=== PATIENT | male | born 1965 | race Caucasian/White ===

== ENCOUNTER 2019-09-11 03:43 | Inpatient (IN) ==
[2019-09-11] MEDS ORDERED: ONDANSETRON 4 MG/2 ML VIAL IV STA (04:08)
[2019-09-11] MEDS ORDERED: MORPHINE 4 MG/1 ML VIAL IV STA ×3 (04:08→05:42)
[2019-09-11] MEDS ORDERED: ASPIRIN 325 MG TABLET PO STA (04:08)
[2019-09-11] MEDS ORDERED: NITROGLYCERIN 2% OINT 1 INCH/GM PACK TOP STA (04:08)
[2019-09-11] MEDS ORDERED: ASPIRIN 325 MG TABLET ONE (04:09)
[2019-09-11] MEDS ORDERED: NITROGLYCERIN 2% OINT 1 INCH/GM PACK TOP ONE (04:09)
[2019-09-11] MEDS ORDERED: MORPHINE 4 MG/1 ML VIAL ONE (04:09)
[2019-09-11] MEDS ORDERED: ONDANSETRON 4 MG/2 ML VIAL ONE (04:09)
[2019-09-11 04:15] LABS: Basophils # 0.1 10*3/uL (0.0-0.2); Basophils % 0.7 % (0.0-0.8); Eosinophils # 0.1 10*3/uL (0.0-0.87); Hematocrit 44.5 VOL% (42.0-52.0); Hemoglobin 14.8 GM/DL (14.0-18.0); Immature Granulocytes % 0.3 %; Immature Granulocytes Absolute 0.02 #; Lymphocytes # 2.8 10*3/uL (1.4-4.0); Lymphocytes % 38.9 % (21.2-54.2); Mean Corpuscular HGB Conc 33.3 GM/DL (32-36); Mean Corpuscular Volume 90.4 FL (87-102); Mean Platelet Volume 9.3 FL (9.6-12.0); Monocytes % 11.3 % (1.7-12.7); Neutrophils % 46.8 % (38.7-73.9); Platelet Count 192 T/CUMM (130-400); Red Blood Count 4.92 MC/CUMM (3.8-5.5); Red Cell Distribution Width 12.2 % (9.3-17.3); White Blood Count 7.1 T/CUMM (4-12)
[2019-09-11 04:56] LABS: Alanine Aminotransferase 29 U/L (16-61); Albumin 3.8 G/DL (3.4-5.0); Alkaline Phosphatase 73 U/L (45-117); Aspartate Amino Transferase 19 U/L (0-37); Bilirubin,Total < 0.39 MG/DL (0.2-1.0); Blood Urea Nitrogen 32 MG/DL (7-18); Calcium 8.4 MG/DL (8.5-10.1); Estimated Glom Filtration Rate 71 ML/MIN; Glucose 124 MG/DL (74-106); Osmolality,Calculated 290.1 MOS/KG (273-304); Total Protein 6.6 G/DL (6.4-8.3)
[2019-09-11] MEDS ORDERED: ENOXAPARIN 100 MG/ML SYRINGE SUBCUT STA (04:58)
[2019-09-11] MEDS ORDERED: PROMETHAZINE 25 MG/1 ML VIAL ONE (05:40)
[2019-09-11] MEDS ORDERED: PROMETHAZINE INJ 25 MG in SODIUM CHLORIDE 0.9% 50 ML IV STA (05:42)
[2019-09-11] MEDS ORDERED: ROSUVASTATIN 20 MG TABLET PO SCH (09:00)
[2019-09-11] MEDS ORDERED: SODIUM CHLORIDE 0.9% 500 ML IV ONE (09:00)
[2019-09-11] MEDS ORDERED: DIAZEPAM 5 MG TABLET PO ONE (09:21)
[2019-09-11] MEDS ORDERED: diphenhydrAMINE CAP 25 MG CAPSULE PO ONE (09:21)
[2019-09-11] MEDS ORDERED: LIDOCAINE 1% 20 ML VIAL ONE (09:27)
[2019-09-11] MEDS ORDERED: MIDAZOLAM 2 MG/2 ML VIAL ONE ×2 (09:47→10:54)
[2019-09-11] MEDS ORDERED: fentaNYL 100 MCG/2 ML VIAL ONE (09:48)
[2019-09-11] MEDS ORDERED: TIROFIBAN 5,000 MCG/100 ML PREMIX IV ONE (10:45)
[2019-09-11] MEDS: TIROFIBAN 5,000 MCG/100 ML PREMIX IV SCH ×3 (10:51→21:20)
[2019-09-11] MEDS ORDERED: TIROFIBAN IV ONE (11:12)
[2019-09-11] MEDS ORDERED: NITROGLYCERIN SL 0.4 MG TABLET SL PRN ×2 (11:25→14:14)
[2019-09-11] MEDS ORDERED: ONDANSETRON 4 MG/2 ML VIAL IV PRN ×2 (11:25→14:14)
[2019-09-11] MEDS ORDERED: MORPHINE 4 MG/1 ML VIAL IV PRN ×2 (11:25→14:14)
[2019-09-11] MEDS ORDERED: SODIUM CHLORIDE 0.9% 1,000 ML IV SCH (11:30)
[2019-09-11 12:28] LABS: CKMB % 10.4 %
[2019-09-11 12:36] LABS: Troponin I 10.1 NG/ML (0.00-0.045)
[2019-09-11 13:03] LABS: Apearance,Urine CLEAR (Clear); Bilirubin,Urine Negative (Negative); Blood, Urine Negative (Negative); Glucose,Urine (UA) Negative (Negative); Ketones,Urine Negative (Negative); Nitrite,Urine Negative (Negative); Protein,Urine Negative; RBC,Urine 1 /HPF (0-4); Squamous Epithelial Cell,Urine Occasional /HPF (0-10); Urine Color Straw (Yellow); Urine Specific Gravity > 1.060 (1.001-1.035); Urine Urobilinogen < 2.0 EU/DL (0.2-1.0)
[2019-09-11 13:12] LABS: Barbiturates Screen,Urine Negative (Negative); Benzodiazepines Screen,Urine Positive (Negative); Cannabinoid Screen,Urine Negative (Negative); Opiate Screen,Urine Positive (Negative); Phencyclidine Screen,Urine Negative (Negative)
[2019-09-11] MEDS ORDERED: PNEUMOCOCCAL VACCINE (13 VALENT) 0.5 ML SYRINGE IM ONE (13:58)
[2019-09-11] MEDS ORDERED: INFLUENZA VIRUS VACCINE 0.5 ML SYRINGE IM ONE (13:58)
[2019-09-11] MEDS ORDERED: ACETAMINOPHEN 325 MG TABLET PO PRN (14:14)
[2019-09-11] MEDS ORDERED: PROMETHAZINE INJ 25 MG in SODIUM CHLORIDE 0.9% 50 ML IV PRN (14:14)
[2019-09-11] MEDS ORDERED: NALOXONE 0.4 MG/ML VIAL IV STA (14:14)
[2019-09-11] MEDS: NON-FORMULARY MEDICATION (Modafinil [Provigil] 200 MG) PO SCH (14:17)
[2019-09-11] MEDS: SODIUM CHLORIDE 0.9% 1,000 ML IV SCH ×2 (14:37→23:11)
[2019-09-11 15:22] LABS: Risk Ratio 3.8; Thyroid Stimulating Hormone 5.44 uIU/ml (0.358-3.74); VLDL CHOLESTEROL 29.6 MG/DL
[2019-09-11] MEDS: PANTOPRAZOLE 40 MG TABLET PO SCH (15:55)
[2019-09-11] MEDS: ENOXAPARIN 80 MG/0.8 ML SYRINGE SUBCUT SCH (17:07)
[2019-09-11 20:39] LABS: CKMB % 9.9 %
[2019-09-11 20:42] LABS: Troponin I 44.8 NG/ML (0.00-0.045)
[2019-09-11] MEDS: ROSUVASTATIN 20 MG TABLET PO SCH (21:35)
[2019-09-11] MEDS: carvediloL 6.25 MG TABLET PO SCH (21:35)
[2019-09-12] MEDS: TIROFIBAN 5,000 MCG/100 ML PREMIX IV SCH ×6 (04:27→23:07)
[2019-09-12 05:02] LABS: Basophils % 0.4 % (0.0-0.8); Eosinophils # 0.1 10*3/uL (0.0-0.87); Eosinophils % 0.8 % (0.00-10.9); Hematocrit 43.1 VOL% (42.0-52.0); Hemoglobin 13.9 GM/DL (14.0-18.0); Immature Granulocytes % 0.4 %; Immature Granulocytes Absolute 0.03 #; Lymphocytes # 1.2 10*3/uL (1.4-4.0); Lymphocytes % 14.9 % (21.2-54.2); Mean Corpuscular HGB Conc 32.3 GM/DL (32-36); Mean Corpuscular Volume 93.7 FL (87-102); Mean Platelet Volume 9.6 FL (9.6-12.0); Monocytes % 8.1 % (1.7-12.7); Neutrophils % 75.4 % (38.7-73.9); Platelet Count 165 T/CUMM (130-400); Red Cell Distribution Width 12.4 % (9.3-17.3); White Blood Count 7.9 T/CUMM (4-12)
[2019-09-12 05:17] LABS: Osmolality,Calculated 287.8 MOS/KG (273-304)
[2019-09-12 05:28] LABS: Risk Ratio 3.82
[2019-09-12 05:40] LABS: CKMB % 7.1 %
[2019-09-12 05:52] LABS: Troponin I 34.3 NG/ML (0.00-0.045)
[2019-09-12] MEDS: ENOXAPARIN 80 MG/0.8 ML SYRINGE SUBCUT SCH (06:42)
[2019-09-12] MEDS: SODIUM CHLORIDE 0.9% 1,000 ML IV SCH (07:28)
[2019-09-12] MEDS: ASPIRIN EC 81 MG TABLET PO SCH (08:51)
[2019-09-12] MEDS: PANTOPRAZOLE 40 MG TABLET PO SCH (08:51)
[2019-09-12] MEDS: carvediloL 6.25 MG TABLET PO SCH ×2 (08:52→22:26)
[2019-09-12] MEDS: NON-FORMULARY MEDICATION (Modafinil [Provigil] 200 MG) PO SCH (08:52)
[2019-09-12] MEDS ORDERED: ASPIRIN 325 MG TABLET PO SCH (09:00)
[2019-09-12] MEDS: ROSUVASTATIN 20 MG TABLET PO SCH (22:26)
[2019-09-12] MEDS: ASCORBIC ACID 500 MG TABLET PO SCH (22:26)
[2019-09-13] MEDS: TIROFIBAN 5,000 MCG/100 ML PREMIX IV SCH ×4 (02:22→17:47)
[2019-09-13 05:13] LABS: Basophils % 0.3 % (0.0-0.8); Eosinophils # 0.2 10*3/uL (0.0-0.87); Eosinophils % 2.7 % (0.00-10.9); Hematocrit 42.3 VOL% (42.0-52.0); Hemoglobin 14.2 GM/DL (14.0-18.0); Immature Granulocytes % 0.3 %; Immature Granulocytes Absolute 0.02 #; Lymphocytes # 1.4 10*3/uL (1.4-4.0); Lymphocytes % 22.3 % (21.2-54.2); Mean Corpuscular HGB Conc 33.6 GM/DL (32-36); Mean Corpuscular Volume 90.6 FL (87-102); Monocytes % 10.1 % (1.7-12.7); Neutrophils % 64.3 % (38.7-73.9); Platelet Count 169 T/CUMM (130-400); Red Blood Count 4.67 MC/CUMM (3.8-5.5); Red Cell Distribution Width 12.2 % (9.3-17.3); White Blood Count 6.2 T/CUMM (4-12)
[2019-09-13 05:41] LABS: Calcium 8.1 MG/DL (8.5-10.1); Osmolality,Calculated 282.3 MOS/KG (273-304)
[2019-09-13 05:46] LABS: CKMB % 3.2 %; Troponin I 15.9 NG/ML (0.00-0.045)
[2019-09-13] MEDS: ASCORBIC ACID 500 MG TABLET PO SCH ×2 (09:56→20:56)
[2019-09-13] MEDS: carvediloL 6.25 MG TABLET PO SCH ×2 (09:56→20:57)
[2019-09-13] MEDS: PANTOPRAZOLE 40 MG TABLET PO SCH (09:56)
[2019-09-13] MEDS: ASPIRIN EC 81 MG TABLET PO SCH (09:56)
[2019-09-13] MEDS: NON-FORMULARY MEDICATION (Modafinil [Provigil] 200 MG) PO SCH (09:56)
[2019-09-13] MEDS: ROSUVASTATIN 20 MG TABLET PO SCH (20:57)
[2019-09-14] MEDS: TIROFIBAN 5,000 MCG/100 ML PREMIX IV SCH ×5 (00:21→21:04)
[2019-09-14] MEDS: ZALEPLON 5 MG CAPSULE PO PRN ×2 (00:27→23:34)
[2019-09-14 05:09] LABS: Basophils % 0.6 % (0.0-0.8); Eosinophils # 0.2 10*3/uL (0.0-0.87); Eosinophils % 2.8 % (0.00-10.9); Hematocrit 43.1 VOL% (42.0-52.0); Hemoglobin 14.4 GM/DL (14.0-18.0); Immature Granulocytes % 0.2 %; Immature Granulocytes Absolute 0.01 #; Lymphocytes # 1.5 10*3/uL (1.4-4.0); Lymphocytes % 27.8 % (21.2-54.2); Mean Corpuscular HGB Conc 33.4 GM/DL (32-36); Mean Corpuscular Volume 90.4 FL (87-102); Mean Platelet Volume 9.8 FL (9.6-12.0); Monocytes % 10.2 % (1.7-12.7); Neutrophils % 58.4 % (38.7-73.9); Platelet Count 171 T/CUMM (130-400); Red Blood Count 4.77 MC/CUMM (3.8-5.5); Red Cell Distribution Width 12.1 % (9.3-17.3); White Blood Count 5.3 T/CUMM (4-12)
[2019-09-14 05:42] LABS: Blood Urea Nitrogen 19 MG/DL (7-18); Calcium 8.4 MG/DL (8.5-10.1); Estimated Glom Filtration Rate 87 ML/MIN; Glucose 105 MG/DL (74-106); Osmolality,Calculated 280.4 MOS/KG (273-304)
[2019-09-14] MEDS: ASCORBIC ACID 500 MG TABLET PO SCH ×2 (09:11→21:03)
[2019-09-14] MEDS: PANTOPRAZOLE 40 MG TABLET PO SCH (09:11)
[2019-09-14] MEDS: ASPIRIN EC 81 MG TABLET PO SCH (09:11)
[2019-09-14] MEDS: carvediloL 6.25 MG TABLET PO SCH ×2 (09:12→21:03)
[2019-09-14] MEDS: NON-FORMULARY MEDICATION (Modafinil [Provigil] 200 MG) PO SCH (09:12)
[2019-09-14] MEDS: ROSUVASTATIN 20 MG TABLET PO SCH (21:03)
[2019-09-15] MEDS: TIROFIBAN 5,000 MCG/100 ML PREMIX IV SCH ×4 (03:42→17:54)
[2019-09-15 04:55] LABS: Basophils % 0.6 % (0.0-0.8); Eosinophils # 0.1 10*3/uL (0.0-0.87); Eosinophils % 2.7 % (0.00-10.9); Hematocrit 42.7 VOL% (42.0-52.0); Hemoglobin 14.2 GM/DL (14.0-18.0); Immature Granulocytes % 0.4 %; Immature Granulocytes Absolute 0.02 #; Lymphocytes # 1.5 10*3/uL (1.4-4.0); Lymphocytes % 28.8 % (21.2-54.2); Mean Corpuscular HGB Conc 33.3 GM/DL (32-36); Mean Corpuscular Volume 90.1 FL (87-102); Mean Platelet Volume 9.6 FL (9.6-12.0); Neutrophils % 56.5 % (38.7-73.9); Platelet Count 175 T/CUMM (130-400); Red Blood Count 4.74 MC/CUMM (3.8-5.5); White Blood Count 5.1 T/CUMM (4-12)
[2019-09-15 05:21] LABS: Calcium 8.9 MG/DL (8.5-10.1); Osmolality,Calculated 289.8 MOS/KG (273-304)
[2019-09-15] MEDS: NON-FORMULARY MEDICATION (Modafinil [Provigil] 200 MG) PO SCH (08:53)
[2019-09-15] MEDS: carvediloL 6.25 MG TABLET PO SCH ×2 (08:54→20:42)
[2019-09-15] MEDS: ASPIRIN EC 81 MG TABLET PO SCH (08:54)
[2019-09-15] MEDS: ASCORBIC ACID 500 MG TABLET PO SCH ×2 (08:54→20:42)
[2019-09-15] MEDS: PANTOPRAZOLE 40 MG TABLET PO SCH (08:55)
[2019-09-15] MEDS: ROSUVASTATIN 20 MG TABLET PO SCH (20:42)
[2019-09-15] MEDS: ZALEPLON 5 MG CAPSULE PO PRN ×2 (20:42→22:00)
[2019-09-16] MEDS: TIROFIBAN 5,000 MCG/100 ML PREMIX IV SCH ×3 (00:54→16:30)
[2019-09-16 04:58] LABS: Basophils % 0.3 % (0.0-0.8); Eosinophils # 0.2 10*3/uL (0.0-0.87); Eosinophils % 3.4 % (0.00-10.9); Hematocrit 41.9 VOL% (42.0-52.0); Immature Granulocytes % 0.3 %; Immature Granulocytes Absolute 0.02 #; Lymphocytes # 1.3 10*3/uL (1.4-4.0); Lymphocytes % 21.6 % (21.2-54.2); Mean Corpuscular HGB Conc 33.4 GM/DL (32-36); Mean Corpuscular Volume 90.1 FL (87-102); Mean Platelet Volume 9.8 FL (9.6-12.0); Monocytes % 10.5 % (1.7-12.7); Neutrophils % 63.9 % (38.7-73.9); Platelet Count 184 T/CUMM (130-400); Red Blood Count 4.65 MC/CUMM (3.8-5.5); Red Cell Distribution Width 12.2 % (9.3-17.3); White Blood Count 5.9 T/CUMM (4-12)
[2019-09-16 05:20] LABS: Calcium 8.5 MG/DL (8.5-10.1); Osmolality,Calculated 284.4 MOS/KG (273-304)
[2019-09-16] MEDS ORDERED: GLUCAGON 1 MG VIAL IM PRN (07:59)
[2019-09-16] MEDS ORDERED: CEFUROXIME INJ 1,500 MG in SYRINGE 1 EACH IV ONE (07:59)
[2019-09-16] MEDS ORDERED: DEXTROSE 50% 25 GM/50 ML VIAL IV PRN (07:59)
[2019-09-16] MEDS ORDERED: SODIUM CHLORIDE 0.9% 1,000 ML IV SCH ×2 (08:00→11:00)
[2019-09-16 08:41] LABS: ABG Base Excess -0.6 MMOL/L (-2.5-2.5); ABG HCO3 23.9 MMOL/L (20-26); ABG Oxygen Saturation 95.8 % (95-100); ABG PCO2 36.7 MM HG (35-48); ABG PH 7.415 (7.35-7.45); ABG PO2 76.4 MM HG (80-95); ABG TCO2 19.9 MMOL/L (23-27); Allen Test Positive
[2019-09-16] MEDS: ASCORBIC ACID 500 MG TABLET PO SCH ×2 (10:02→20:22)
[2019-09-16] MEDS: carvediloL 6.25 MG TABLET PO SCH ×2 (10:02→20:22)
[2019-09-16] MEDS: ASPIRIN EC 81 MG TABLET PO SCH (10:03)
[2019-09-16] MEDS: PANTOPRAZOLE 40 MG TABLET PO SCH (10:03)
[2019-09-16] MEDS: CHLORHEXIDINE 4% SOLN 118 ML BOTTLE TOP SCH ×3 (10:04→20:24)
[2019-09-16] MEDS: NON-FORMULARY MEDICATION (Modafinil [Provigil] 200 MG) PO SCH (10:04)
[2019-09-16] MEDS: CHLORHEXIDINE 0.12% ORAL RINSE 60 ML BOTTLE SWISH/SPIT SCH ×2 (10:09→20:24)
[2019-09-16] MEDS ORDERED: HEPARIN/NACL 0.9% 2 UNITS/ML 500 ML IV ONE (12:40)
[2019-09-16] MEDS ORDERED: PHENYLEPHRINE DRIP 20 MG/250 ML PREMIX IV ONE (12:40)
[2019-09-16] MEDS ORDERED: LIDOCAINE 2% 5 ML VIAL ONE (12:40)
[2019-09-16] MEDS ORDERED: SUFentanil 250 MCG/5 ML AMP ONE (12:41)
[2019-09-16] MEDS ORDERED: VECURONIUM 10 MG VIAL IV ONE (12:41)
[2019-09-16] MEDS ORDERED: ETOMIDATE 40 MG/20 ML VIAL IV ONE (12:41)
[2019-09-16] MEDS ORDERED: MIDAZOLAM 10 MG/2 ML VIAL ONE ×2 (12:41)
[2019-09-16] MEDS ORDERED: NITROGLYCERIN DRIP 50 MG/250 ML BOTTLE IV ONE (12:42)
[2019-09-16] MEDS ORDERED: AMINOCAPROIC ACID 5,000 MG/20 ML VIAL ONE (12:42)
[2019-09-16] MEDS ORDERED: DIAZEPAM 5 MG TABLET PO ONE (14:05)
[2019-09-16] MEDS: ROSUVASTATIN 20 MG TABLET PO SCH (20:22)
[2019-09-16] MEDS: ZALEPLON 5 MG CAPSULE PO PRN (23:02)
[2019-09-17] MEDS ORDERED: PAPAVERINE 60 MG/2 ML VIAL ONE (04:21)
[2019-09-17] MEDS ORDERED: VANCOMYCIN 1,000 MG VIAL ONE (04:22)
[2019-09-17] MEDS ORDERED: VANCOMYCIN 500 MG VIAL ONE (04:22)
[2019-09-17] MEDS ORDERED: SODIUM CHLORIDE 0.9% 1,000 ML IV SCH (07:00)
[2019-09-17] MEDS ORDERED: CEFUROXIME INJ 1,500 MG in SYRINGE 1 EACH IV ONE (07:00)
[2019-09-17] MEDS ORDERED: NITROPRUSSIDE 50 MG/2 ML VIAL ONE (07:11)
[2019-09-17] MEDS ORDERED: CALCIUM CHLORIDE 1,000 MG/10 ML SYRINGE IV ONE (07:12)
[2019-09-17] MEDS ORDERED: POTASSIUM CHLORIDE RIDER 100 ML IV ONE (07:12)
[2019-09-17] MEDS ORDERED: SODIUM BICARBONATE 50 MEQ/50 ML VIAL IV ONE ×2 (07:12→11:39)
[2019-09-17 07:29] LABS: ABG Base Excess -0.8 MMOL/L (-2.5-2.5); ABG HCO3 23.8 MMOL/L (20-26); ABG PCO2 31.3 MM HG (35-48); ABG PH 7.457 (7.35-7.45); ABG TCO2 19.3 MMOL/L (23-27); Glucose Heart Surgery 110 MG/DL (74-106); Hematocrit Heart Surgery 39.5 PERCENT (42-52); Hemoglobin Heart Surgery 12.8 G/DL (14.0-18.0); Ionized Calcium Arterial 1.12 MMOL/L (1.21-1.46); PCO2 Patient Temp Arterial 31.3 MMHG; PH Patient Temp Arterial 7.457; Patient Temperature 37 CELCIUS; Potassium Heart/CVR 3.6 MMOL/L (3.5-5.1); Sodium Heart/CVR 140 MMOL/L (135-145)
[2019-09-17 08:29] LABS: Apearance,Urine CLEAR (Clear); Bilirubin,Urine Negative (Negative); Blood, Urine Negative (Negative); Glucose,Urine (UA) Negative (Negative); Ketones,Urine Negative (Negative); Mucus,Urine Occasional /LPF (Occasional); Nitrite,Urine Negative (Negative); Protein,Urine Negative; RBC,Urine <1 /HPF (0-4); Urine Color Yellow (Yellow); Urine Specific Gravity 1.021 (1.001-1.035); Urine Urobilinogen < 2.0 EU/DL (0.2-1.0); WBC,Urine <1 /HPF (0-6)
[2019-09-17 09:16] LABS: Hematocrit Heart Surgery 29.2 PERCENT (42-52); Hemoglobin Heart Surgery 9.4 G/DL (14.0-18.0); PCO2 Patient Temp Venous 32.8 MM HG; PH Patient Temp Venous 7.486; PO2 Patient Temp Venous 41.5 MM HG; VBG Base Excess 1.7 MEQ/L (0-4); VBG HCO3 25.8 MEQ/L (24-28); VBG Oxygen Saturation 86.4 %; VBG PCO2 36.1 MMHG (41-51); VBG PH 7.456; VBG PO2 47.6 MMHG (17-40)
[2019-09-17 09:48] LABS: PCO2 Patient Temp Venous 32.1 MM HG; PH Patient Temp Venous 7.486; PO2 Patient Temp Venous 38.4 MM HG; VBG Base Excess 1.4 MEQ/L (0-4); VBG HCO3 25.5 MEQ/L (24-28); VBG Oxygen Saturation 87.1 %; VBG PCO2 38.9 MMHG (41-51); VBG PH 7.427; VBG PO2 50.5 MMHG (17-40)
[2019-09-17 10:16] LABS: Hematocrit Heart Surgery 30.4 PERCENT (42-52); Hemoglobin Heart Surgery 9.8 G/DL (14.0-18.0); PCO2 Patient Temp Venous 32.6 MM HG; PH Patient Temp Venous 7.485; PO2 Patient Temp Venous 37.3 MM HG; Potassium Heart/CVR 5.2 MMOL/L (3.5-5.1); VBG Base Excess 1.6 MEQ/L (0-4); VBG HCO3 25.6 MEQ/L (24-28); VBG Oxygen Saturation 84.1 %; VBG PCO2 37.7 MMHG (41-51); VBG PH 7.44
[2019-09-17 10:44] LABS: Hematocrit Heart Surgery 32.2 PERCENT (42-52); Hemoglobin Heart Surgery 10.4 G/DL (14.0-18.0); PCO2 Patient Temp Venous 40.3 MM HG; PH Patient Temp Venous 7.419; PO2 Patient Temp Venous 45.6 MM HG; Potassium Heart/CVR 4.6 MMOL/L (3.5-5.1); VBG Base Excess 1.6 MEQ/L (0-4); VBG HCO3 25.5 MEQ/L (24-28); VBG Oxygen Saturation 81.2 %; VBG PCO2 40.3 MMHG (41-51); VBG PH 7.419; VBG PO2 45.6 MMHG (17-40)
[2019-09-17 11:23] LABS: ABG Base Excess 0.6 MMOL/L (-2.5-2.5); ABG Oxygen Saturation 99.4 % (95-100); ABG PCO2 36.5 MM HG (35-48); ABG PH 7.436 (7.35-7.45); ABG TCO2 22.4 MMOL/L (23-27); Glucose Heart Surgery 170 MG/DL (74-106); Hematocrit Heart Surgery 29.9 PERCENT (42-52); Hemoglobin Heart Surgery 9.7 G/DL (14.0-18.0); Ionized Calcium Arterial 1.19 MMOL/L (1.21-1.46); PCO2 Patient Temp Arterial 36.5 MMHG; PH Patient Temp Arterial 7.436; Patient Temperature 37 CELCIUS; Potassium Heart/CVR 3.7 MMOL/L (3.5-5.1); Sodium Heart/CVR 140 MMOL/L (135-145)
[2019-09-17] MEDS ORDERED: PROTAMINE SULFATE 250 MG/25 ML VIAL IV ONE (11:39)
[2019-09-17] MEDS ORDERED: DEXTROSE 5% KCL 20 MEQ 20 MEQ/1,000 ML BAG IV ONE (11:39)
[2019-09-17] MEDS ORDERED: HEPARIN 10,000 UNIT/10 ML VIAL ONE (11:39)
[2019-09-17] MEDS ORDERED: LIDOCAINE 2% 5 ML VIAL ONE (11:39)
[2019-09-17] MEDS ORDERED: MANNITOL 100 GM/500 ML BAG IV ONE (11:39)
[2019-09-17] MEDS ORDERED: MAGNESIUM SULFATE 5 GM/10 ML VIAL IV ONE (11:39)
[2019-09-17] MEDS ORDERED: ALBUMIN 25% 25 GM/100 ML VIAL IV ONE (11:39)
[2019-09-17] MEDS ORDERED: PROTAMINE SULFATE 50 MG/5 ML VIAL IV ONE (11:40)
[2019-09-17] MEDS ORDERED: FUROSEMIDE 20 MG/2 ML VIAL ONE (11:40)
[2019-09-17] MEDS ORDERED: methylPREDNISolone SOD SUC 1,000 MG/8 ML VIAL ONE (11:40)
[2019-09-17] MEDS ORDERED: MAGNESIUM SULF RIDER 2 GM in PREMIX 1 EACH IV PRN (12:30)
[2019-09-17] MEDS ORDERED: KETOROLAC 30 MG/1 ML VIAL IV SCH (12:30)
[2019-09-17] MEDS ORDERED: INSULIN REGULAR DRIP 100 ML IV SCH (12:30)
[2019-09-17] MEDS ORDERED: MAGNESIUM SULF RIDER 4 GM in PREMIX 1 EACH IV PRN (12:30)
[2019-09-17] MEDS ORDERED: MIDAZOLAM 2 MG/2 ML VIAL IV PRN (12:30)
[2019-09-17] MEDS ORDERED: MIDAZOLAM 10 MG/2 ML VIAL IV PRN (12:30)
[2019-09-17] MEDS ORDERED: CALCIUM CHLORIDE 1,000 MG/10 ML SYRINGE IV PRN (12:30)
[2019-09-17] MEDS ORDERED: ACETAMINOPHEN 650 MG SUPP RECTAL PRN (12:30)
[2019-09-17] MEDS ORDERED: INSULIN REGULAR 100 UNIT/ML IV ONE (12:30)
[2019-09-17] MEDS ORDERED: SODIUM CHLORIDE 0.45% 1,000 ML IV SCH ×2 (12:30)
[2019-09-17] MEDS ORDERED: MORPHINE 4 MG/1 ML VIAL IV PRN (12:30)
[2019-09-17] MEDS ORDERED: NITROPRUSSIDE 100 MG in DEXTROSE 5% 250 ML IV PRN (12:30)
[2019-09-17] MEDS ORDERED: INSULIN REGULAR 100 UNIT/ML IV PRN (12:30)
[2019-09-17] MEDS ORDERED: POTASSIUM CHLORIDE RIDER 10 MEQ in PREMIX 1 EACH IV PRN (12:30)
[2019-09-17] MEDS ORDERED: VECURONIUM 10 MG VIAL IV PRN ×2 (12:30)
[2019-09-17] MEDS ORDERED: DEXTROSE 10% 250 ML BAG IV PRN ×2 (12:30)
[2019-09-17] MEDS ORDERED: PHENYLEPHRINE DRIP 40 MG/250 ML PREMIX IV PRN (12:30)
[2019-09-17] MEDS ORDERED: MORPHINE 10 MG/1 ML VIAL IV PRN (12:30)
[2019-09-17] MEDS ORDERED: LACTATED RINGERS 250 ML IV PRN (12:30)
[2019-09-17 12:34] LABS: ABG Base Excess 1.9 MMOL/L (-2.5-2.5); ABG HCO3 26.2 MMOL/L (20-26); ABG PCO2 37.7 MM HG (35-48); ABG PH 7.445 (7.35-7.45); ABG TCO2 23.3 MMOL/L (23-27); Glucose Heart Surgery 148 MG/DL (74-106); Hematocrit Heart Surgery 32.6 PERCENT (42-52); Hemoglobin Heart Surgery 10.6 G/DL (14.0-18.0); Potassium Heart/CVR 3.5 MMOL/L (3.5-5.1)
[2019-09-17 12:40] LABS: Basophils % 0.3 % (0.0-0.8); Eosinophils # 0.1 10*3/uL (0.0-0.87); Eosinophils % 0.7 % (0.00-10.9); Hematocrit 30.4 VOL% (42.0-52.0); Hemoglobin 10.4 GM/DL (14.0-18.0); Immature Granulocytes % 0.7 %; Immature Granulocytes Absolute 0.05 #; Lymphocytes # 0.7 10*3/uL (1.4-4.0); Lymphocytes % 9.5 % (21.2-54.2); Mean Corpuscular HGB Conc 34.2 GM/DL (32-36); Mean Corpuscular Volume 89.1 FL (87-102); Mean Platelet Volume 9.7 FL (9.6-12.0); Monocytes % 7.4 % (1.7-12.7); Neutrophils % 81.4 % (38.7-73.9); Platelet Count 178 T/CUMM (130-400); Red Blood Count 3.41 MC/CUMM (3.8-5.5); Red Cell Distribution Width 12.3 % (9.3-17.3)
[2019-09-17 12:45] LABS: INR 1.2; PT Patient Result 12.7 SECS (9.6-12.2); Partial Thromboplastin Time 27.5 SECS (20.8-36.0)
[2019-09-17 12:52] LABS: CKMB % 4.5 %; Troponin I 6.18 NG/ML (0.00-0.045)
[2019-09-17 12:58] LABS: Bilirubin,Total 0.9 MG/DL (0.2-1.0); Calcium 8.6 MG/DL (8.5-10.1); Osmolality,Calculated 295.6 MOS/KG (273-304); Total Protein 6.4 G/DL (6.4-8.3)
[2019-09-17] MEDS ORDERED: SEVOFLURANE 1 UNIT/15 MINUTE INH ONE (12:58)
[2019-09-17] MEDS: POTASSIUM CHLORIDE RIDER 20 MEQ in PREMIX 1 EACH IV PRN ×3 (13:01→21:02)
[2019-09-17] MEDS: carvediloL 6.25 MG TABLET PO SCH (13:35)
[2019-09-17] MEDS: CHLORHEXIDINE 0.12% ORAL RINSE 60 ML BOTTLE SWISH/SPIT SCH ×2 (13:35→21:03)
[2019-09-17] MEDS: ASCORBIC ACID 500 MG TABLET PO SCH (13:35)
[2019-09-17] MEDS: NON-FORMULARY MEDICATION (Modafinil [Provigil] 200 MG) PO SCH (13:35)
[2019-09-17] MEDS: PANTOPRAZOLE 40 MG TABLET PO SCH (13:35)
[2019-09-17] MEDS: ASPIRIN EC 81 MG TABLET PO SCH (13:35)
[2019-09-17 14:08] LABS: ABG Base Excess 0.7 MMOL/L (-2.5-2.5); ABG HCO3 24.6 MMOL/L (20-26); ABG Oxygen Saturation 98.7 % (95-100); ABG PCO2 36.6 MM HG (35-48); ABG PH 7.445 (7.35-7.45); ABG PO2 257.5 MM HG (80-95); ABG TCO2 25.7 MMOL/L (23-27); Glucose Heart Surgery 165 MG/DL (74-106); Hemoglobin Heart Surgery 10.3 G/DL (14.0-18.0); Potassium Heart/CVR 4.1 MMOL/L (3.5-5.1)
[2019-09-17] MEDS: ALBUMIN 5% 12.5 GM in PREMIX 1 EACH IV PRN ×2 (15:04→15:20)
[2019-09-17 15:05] LABS: ABG Base Excess 1.7 MMOL/L (-2.5-2.5); ABG HCO3 25.9 MMOL/L (20-26); ABG Oxygen Saturation 99.4 % (95-100); ABG PCO2 39.8 MM HG (35-48); ABG PH 7.425 (7.35-7.45); ABG TCO2 23.6 MMOL/L (23-27); Glucose Heart Surgery 188 MG/DL (74-106); Hematocrit Heart Surgery 31.6 PERCENT (42-52); Hemoglobin Heart Surgery 10.2 G/DL (14.0-18.0); Potassium Heart/CVR 4.5 MMOL/L (3.5-5.1)
[2019-09-17 16:50] LABS: ABG Base Excess 1.4 MMOL/L (-2.5-2.5); ABG HCO3 25.7 MMOL/L (20-26); ABG Oxygen Saturation 99.8 % (95-100); ABG PCO2 34.6 MM HG (35-48); ABG PH 7.465 (7.35-7.45); ABG TCO2 22.8 MMOL/L (23-27); Glucose Heart Surgery 191 MG/DL (74-106); Hematocrit Heart Surgery 28.9 PERCENT (42-52); Hemoglobin Heart Surgery 9.3 G/DL (14.0-18.0); Potassium Heart/CVR 4.4 MMOL/L (3.5-5.1)
[2019-09-17 17:37] LABS: ABG Base Excess 1.5 MMOL/L (-2.5-2.5); ABG HCO3 25.8 MMOL/L (20-26); ABG Oxygen Saturation 99.6 % (95-100); ABG PCO2 37.6 MM HG (35-48); ABG TCO2 23.4 MMOL/L (23-27); Glucose Heart Surgery 186 MG/DL (74-106); Hematocrit Heart Surgery 28.5 PERCENT (42-52); Hemoglobin Heart Surgery 9.2 G/DL (14.0-18.0); Potassium Heart/CVR 4.3 MMOL/L (3.5-5.1)
[2019-09-17] MEDS: ONDANSETRON 4 MG/2 ML VIAL IV PRN ×2 (18:25→20:49)
[2019-09-17 18:26] LABS: ABG Base Excess 0.7 MMOL/L (-2.5-2.5); ABG HCO3 25.1 MMOL/L (20-26); ABG Oxygen Saturation 99.7 % (95-100); ABG PCO2 33.6 MM HG (35-48); ABG PH 7.463 (7.35-7.45); ABG TCO2 21.9 MMOL/L (23-27); Glucose Heart Surgery 183 MG/DL (74-106); Hematocrit Heart Surgery 30.1 PERCENT (42-52); Hemoglobin Heart Surgery 9.7 G/DL (14.0-18.0); Potassium Heart/CVR 4.1 MMOL/L (3.5-5.1)
[2019-09-17 20:08] LABS: ABG Base Excess 0.1 MMOL/L (-2.5-2.5); ABG HCO3 24.5 MMOL/L (20-26); ABG Oxygen Saturation 99.1 % (95-100); ABG PCO2 39.3 MM HG (35-48); ABG PH 7.405 (7.35-7.45); ABG TCO2 22.4 MMOL/L (23-27); Glucose Heart Surgery 159 MG/DL (74-106); Hematocrit Heart Surgery 30.5 PERCENT (42-52); Hemoglobin Heart Surgery 9.8 G/DL (14.0-18.0); Potassium Heart/CVR 4.3 MMOL/L (3.5-5.1)
[2019-09-17 20:41] LABS: CKMB % 3.7 %; Troponin I 5.38 NG/ML (0.00-0.045)
[2019-09-17] MEDS: CEFUROXIME INJ 1,500 MG in SYRINGE 1 EACH IV SCH (21:25)
[2019-09-17] MEDS ORDERED: METOCLOPRAMIDE 10 MG/2 ML VIAL IV ONE (21:30)
[2019-09-17] MEDS ORDERED: PROMETHAZINE INJ 12.5 MG in SODIUM CHLORIDE 0.9% 50 ML IV ONE (21:30)
[2019-09-18] MEDS: HYDROmorphone 2 MG/1 ML VIAL IV PRN ×3 (00:07→08:21)
[2019-09-18] MEDS ORDERED: FUROSEMIDE 40 MG/4 ML VIAL IV ONE (01:29)
[2019-09-18] MEDS: ALBUMIN 5% 12.5 GM in PREMIX 1 EACH IV PRN (01:37)
[2019-09-18 04:37] LABS: ABG Base Excess 2.3 MMOL/L (-2.5-2.5); ABG HCO3 26.5 MMOL/L (20-26); ABG Oxygen Saturation 98.5 % (95-100); ABG PCO2 40.9 MM HG (35-48); ABG PH 7.426 (7.35-7.45); ABG TCO2 23.4 MMOL/L (23-27); Glucose Heart Surgery 140 MG/DL (74-106); Hematocrit Heart Surgery 40.1 PERCENT (42-52); Hemoglobin Heart Surgery 13.1 G/DL (14.0-18.0); Potassium Heart/CVR 4.2 MMOL/L (3.5-5.1)
[2019-09-18] MEDS: POTASSIUM CHLORIDE RIDER 20 MEQ in PREMIX 1 EACH IV PRN (04:47)
[2019-09-18 04:51] LABS: Basophils % 0.1 % (0.0-0.8); Hematocrit 27.8 VOL% (42.0-52.0); Hemoglobin 9.3 GM/DL (14.0-18.0); Immature Granulocytes % 1.2 %; Immature Granulocytes Absolute 0.11 #; Lymphocytes # 0.6 10*3/uL (1.4-4.0); Lymphocytes % 6.1 % (21.2-54.2); Mean Corpuscular HGB Conc 33.5 GM/DL (32-36); Mean Corpuscular Volume 90.8 FL (87-102); Mean Platelet Volume 10.1 FL (9.6-12.0); Monocytes % 8.9 % (1.7-12.7); Neutrophils % 83.7 % (38.7-73.9); Platelet Count 165 T/CUMM (130-400); Red Blood Count 3.06 MC/CUMM (3.8-5.5); Red Cell Distribution Width 12.7 % (9.3-17.3); White Blood Count 9.4 T/CUMM (4-12)
[2019-09-18 04:58] LABS: Albumin 4.1 G/DL (3.4-5.0); Bilirubin,Direct 0.17 MG/DL (0.0-0.20); Calcium 8.3 MG/DL (8.5-10.1); Osmolality,Calculated 291.8 MOS/KG (273-304); Total Protein 6.1 G/DL (6.4-8.3)
[2019-09-18 05:00] LABS: CKMB % 3.1 %
[2019-09-18 05:17] LABS: ABG Base Excess 2.2 MMOL/L (-2.5-2.5); ABG HCO3 26.4 MMOL/L (20-26); ABG Oxygen Saturation 98.8 % (95-100); ABG PCO2 42.3 MM HG (35-48); ABG PH 7.413 (7.35-7.45); ABG TCO2 24.6 MMOL/L (23-27); Glucose Heart Surgery 136 MG/DL (74-106); Hematocrit Heart Surgery 30.2 PERCENT (42-52); Hemoglobin Heart Surgery 9.7 G/DL (14.0-18.0); Potassium Heart/CVR 4.9 MMOL/L (3.5-5.1)
[2019-09-18 05:29] LABS: Basophils % 0.1 % (0.0-0.8); Hematocrit 28.1 VOL% (42.0-52.0); Hemoglobin 9.4 GM/DL (14.0-18.0); Immature Granulocytes % 0.4 %; Immature Granulocytes Absolute 0.04 #; Lymphocytes # 0.7 10*3/uL (1.4-4.0); Lymphocytes % 7.2 % (21.2-54.2); Mean Corpuscular HGB Conc 33.5 GM/DL (32-36); Mean Corpuscular Volume 89.8 FL (87-102); Mean Platelet Volume 10.1 FL (9.6-12.0); Monocytes % 10.7 % (1.7-12.7); Neutrophils % 81.6 % (38.7-73.9); Platelet Count 168 T/CUMM (130-400); Red Blood Count 3.13 MC/CUMM (3.8-5.5); Red Cell Distribution Width 12.8 % (9.3-17.3); White Blood Count 9.4 T/CUMM (4-12)
[2019-09-18 05:36] LABS: Troponin I 6.51 NG/ML (0.00-0.045)
[2019-09-18] MEDS: CEFUROXIME INJ 1,500 MG in SYRINGE 1 EACH IV SCH (07:20)
[2019-09-18] MEDS ORDERED: INSULIN REGULAR 100 UNIT/ML SUBCUT SCH (08:00)
[2019-09-18] MEDS: LOSARTAN 25 MG TABLET PO SCH (10:08)
[2019-09-18] MEDS: METOPROLOL TARTRATE 25 MG TABLET PO SCH ×2 (10:09→21:07)
[2019-09-18] MEDS: CHLORHEXIDINE 0.12% ORAL RINSE 60 ML BOTTLE SWISH/SPIT SCH ×2 (10:09→21:05)
[2019-09-18] MEDS: ONDANSETRON 4 MG/2 ML VIAL IV PRN (10:26)
[2019-09-18] MEDS ORDERED: MAGNESIUM HYDROXIDE SUSP 30 ML UDCUP PO PRN (11:39)
[2019-09-18] MEDS ORDERED: MAGNESIUM SULF RIDER 2 GM in PREMIX 1 EACH IV PRN (11:39)
[2019-09-18] MEDS ORDERED: POTASSIUM CHLORIDE 20 MEQ TABLET PO PRN (11:39)
[2019-09-18] MEDS ORDERED: ACETAMINOPHEN 325 MG TABLET PO PRN (11:39)
[2019-09-18] MEDS ORDERED: DEXTROSE 50% 25 GM/50 ML VIAL IV PRN ×2 (11:39)
[2019-09-18] MEDS ORDERED: MAGNESIUM SULF RIDER 4 GM in PREMIX 1 EACH IV PRN (11:39)
[2019-09-18] MEDS ORDERED: ONDANSETRON 4 MG/2 ML VIAL IV PRN (11:39)
[2019-09-18] MEDS ORDERED: GLUCAGON 1 MG VIAL IM PRN ×2 (11:39)
[2019-09-18] MEDS ORDERED: ALUMINUM/MAGNES/SIMETH MAX STR 30 ML UDCUP PO PRN (11:39)
[2019-09-18] MEDS ORDERED: SODIUM CHLOR 0.45% KCL 20 MEQ 20 MEQ/1,000 ML BAG IV SCH (11:39)
[2019-09-18] MEDS: KETOROLAC 30 MG/1 ML VIAL IV SCH ×3 (12:44→23:58)
[2019-09-18] MEDS: oxyCODONE/ACETAMINOPHEN 5-325 MG TABLET PO PRN (18:49)
[2019-09-18] MEDS ORDERED: ATORVASTATIN 40 MG TABLET PO SCH (21:00)
[2019-09-18] MEDS: ROSUVASTATIN 20 MG TABLET PO SCH (21:03)
[2019-09-18] MEDS: ZALEPLON 5 MG CAPSULE PO PRN (22:07)
[2019-09-19 05:54] LABS: Basophils % 0.1 % (0.0-0.8); Hematocrit 26.2 VOL% (42.0-52.0); Hemoglobin 8.6 GM/DL (14.0-18.0); Immature Granulocytes % 0.3 %; Immature Granulocytes Absolute 0.02 #; Lymphocytes # 0.6 10*3/uL (1.4-4.0); Lymphocytes % 9.2 % (21.2-54.2); Mean Corpuscular HGB Conc 32.8 GM/DL (32-36); Mean Corpuscular Volume 91.6 FL (87-102); Mean Platelet Volume 10.7 FL (9.6-12.0); Monocytes % 10.2 % (1.7-12.7); Neutrophils % 80.2 % (38.7-73.9); Platelet Count 123 T/CUMM (130-400); Red Blood Count 2.86 MC/CUMM (3.8-5.5); Red Cell Distribution Width 12.9 % (9.3-17.3); White Blood Count 6.9 T/CUMM (4-12)
[2019-09-19] MEDS ORDERED: FUROSEMIDE 40 MG/4 ML VIAL IV ONE (06:00)
[2019-09-19] MEDS: KETOROLAC 30 MG/1 ML VIAL IV SCH ×4 (06:14→23:51)
[2019-09-19 06:26] LABS: Albumin 3.1 G/DL (3.4-5.0); Bilirubin,Direct 0.12 MG/DL (0.0-0.20); Bilirubin,Indirect 0.5 MG/DL (0.0-1.0); Bilirubin,Total 0.6 MG/DL (0.2-1.0); CKMB % 2.7 %; Calcium 8.4 MG/DL (8.5-10.1); Osmolality,Calculated 287.4 MOS/KG (273-304); Total Protein 5.6 G/DL (6.4-8.3)
[2019-09-19 06:29] LABS: Troponin I 6.92 NG/ML (0.00-0.045)
[2019-09-19] MEDS: LOSARTAN 25 MG TABLET PO SCH (09:00)
[2019-09-19] MEDS: ASPIRIN EC 325 MG TABLET PO SCH (09:00)
[2019-09-19] MEDS: METOPROLOL TARTRATE 25 MG TABLET PO SCH ×2 (09:00→22:01)
[2019-09-19] MEDS: PANTOPRAZOLE 40 MG TABLET PO SCH (09:00)
[2019-09-19] MEDS: DOCUSATE SODIUM 100 MG CAPSULE PO SCH (09:00)
[2019-09-19] MEDS: FERROUS SULFATE 325 MG TABLET PO SCH (09:01)
[2019-09-19] MEDS: CLOPIDOGREL 75 MG TABLET PO SCH (09:01)
[2019-09-19] MEDS: CHLORHEXIDINE 0.12% ORAL RINSE 60 ML BOTTLE SWISH/SPIT SCH ×2 (09:02→22:03)
[2019-09-19] MEDS ORDERED: CLORAZEPATE 7.5 MG TABLET PO ONE (15:43)
[2019-09-19] MEDS ORDERED: CLORAZEPATE 3.75 MG TABLET PO PRN (15:44)
[2019-09-19] MEDS: ROSUVASTATIN 20 MG TABLET PO SCH (22:01)
[2019-09-19] MEDS: ZALEPLON 5 MG CAPSULE PO PRN (22:01)
[2019-09-20 04:38] LABS: Basophils % 0.1 % (0.0-0.8); Eosinophils % 0.4 % (0.00-10.9); Hematocrit 28.1 VOL% (42.0-52.0); Hemoglobin 9.1 GM/DL (14.0-18.0); Immature Granulocytes % 0.7 %; Immature Granulocytes Absolute 0.05 #; Lymphocytes % 13.8 % (21.2-54.2); Mean Corpuscular HGB Conc 32.4 GM/DL (32-36); Mean Corpuscular Volume 92.4 FL (87-102); Monocytes % 10.1 % (1.7-12.7); Neutrophils % 74.9 % (38.7-73.9); Platelet Count 140 T/CUMM (130-400); Red Blood Count 3.04 MC/CUMM (3.8-5.5); Red Cell Distribution Width 12.6 % (9.3-17.3)
[2019-09-20 05:01] LABS: Bilirubin,Direct 0.11 MG/DL (0.0-0.20); Bilirubin,Indirect 0.3 MG/DL (0.0-1.0); Bilirubin,Total 0.4 MG/DL (0.2-1.0); CKMB % 1.5 %; Calcium 8.3 MG/DL (8.5-10.1); Total Protein 5.8 G/DL (6.4-8.3)
[2019-09-20 05:03] LABS: Troponin I 7.56 NG/ML (0.00-0.045)
[2019-09-20] MEDS: KETOROLAC 30 MG/1 ML VIAL IV SCH ×3 (06:56→21:58)
[2019-09-20] MEDS: CHLORHEXIDINE 0.12% ORAL RINSE 60 ML BOTTLE SWISH/SPIT SCH ×2 (09:44→22:01)
[2019-09-20] MEDS: DOCUSATE SODIUM 100 MG CAPSULE PO SCH (09:44)
[2019-09-20] MEDS: METOPROLOL TARTRATE 25 MG TABLET PO SCH ×2 (09:44→21:56)
[2019-09-20] MEDS: FERROUS SULFATE 325 MG TABLET PO SCH (09:44)
[2019-09-20] MEDS: CLOPIDOGREL 75 MG TABLET PO SCH (09:44)
[2019-09-20] MEDS: ASPIRIN EC 325 MG TABLET PO SCH (09:44)
[2019-09-20] MEDS: PANTOPRAZOLE 40 MG TABLET PO SCH (09:44)
[2019-09-20] MEDS: oxyCODONE/ACETAMINOPHEN 5-325 MG TABLET PO PRN (13:35)
[2019-09-20] MEDS: ROSUVASTATIN 20 MG TABLET PO SCH (21:56)
[2019-09-21] MEDS: KETOROLAC 30 MG/1 ML VIAL IV SCH ×2 (00:01→06:07)
[2019-09-21] MEDS: ASPIRIN EC 325 MG TABLET PO SCH (09:08)
[2019-09-21] MEDS: CLOPIDOGREL 75 MG TABLET PO SCH (09:08)
[2019-09-21] MEDS: CHLORHEXIDINE 0.12% ORAL RINSE 60 ML BOTTLE SWISH/SPIT SCH ×2 (09:08→21:58)
[2019-09-21] MEDS: DOCUSATE SODIUM 100 MG CAPSULE PO SCH (09:08)
[2019-09-21] MEDS: FERROUS SULFATE 325 MG TABLET PO SCH (09:08)
[2019-09-21] MEDS: METOPROLOL TARTRATE 25 MG TABLET PO SCH ×2 (09:08→21:56)
[2019-09-21] MEDS: PANTOPRAZOLE 40 MG TABLET PO SCH (09:08)
[2019-09-21] MEDS: ROSUVASTATIN 20 MG TABLET PO SCH (21:56)
[2019-09-21] MEDS: oxyCODONE/ACETAMINOPHEN 5-325 MG TABLET PO PRN (21:56)
[2019-09-21] MEDS: ZALEPLON 5 MG CAPSULE PO PRN (21:56)
[2019-09-22 05:06] LABS: Basophils % 0.2 % (0.0-0.8); Eosinophils # 0.3 10*3/uL (0.0-0.87); Eosinophils % 5.6 % (0.00-10.9); Hematocrit 31.6 VOL% (42.0-52.0); Hemoglobin 10.6 GM/DL (14.0-18.0); Immature Granulocytes % 0.8 %; Immature Granulocytes Absolute 0.04 #; Lymphocytes # 1.4 10*3/uL (1.4-4.0); Mean Corpuscular HGB Conc 33.5 GM/DL (32-36); Mean Corpuscular Volume 91.1 FL (87-102); Mean Platelet Volume 9.7 FL (9.6-12.0); Monocytes % 12.3 % (1.7-12.7); Neutrophils % 53.1 % (38.7-73.9); Platelet Count 168 T/CUMM (130-400); Red Blood Count 3.47 MC/CUMM (3.8-5.5); Red Cell Distribution Width 12.5 % (9.3-17.3)
[2019-09-22 05:36] LABS: Alanine Aminotransferase 23 U/L (16-61); Albumin 2.8 G/DL (3.4-5.0); Alkaline Phosphatase 54 U/L (45-117); Aspartate Amino Transferase 20 U/L (0-37); Bilirubin,Direct < 0.100 MG/DL (0.0-0.20); Bilirubin,Indirect 0.3 MG/DL (0.0-1.0); Blood Urea Nitrogen 28 MG/DL (7-18); Calcium 8.3 MG/DL (8.5-10.1); Estimated Glom Filtration Rate 89 ML/MIN; Glucose 98 MG/DL (74-106); Osmolality,Calculated 288.1 MOS/KG (273-304); Total Protein 5.9 G/DL (6.4-8.3)
[2019-09-22 08:21] VITALS: BP 114/76
[2019-09-22] MEDS: DOCUSATE SODIUM 100 MG CAPSULE PO SCH (08:27)
[2019-09-22] MEDS: ASPIRIN EC 325 MG TABLET PO SCH (08:27)
[2019-09-22] MEDS: CLOPIDOGREL 75 MG TABLET PO SCH (08:27)
[2019-09-22] MEDS: FERROUS SULFATE 325 MG TABLET PO SCH (08:27)
[2019-09-22] MEDS: METOPROLOL TARTRATE 25 MG TABLET PO SCH (08:27)
[2019-09-22] MEDS: CHLORHEXIDINE 0.12% ORAL RINSE 60 ML BOTTLE SWISH/SPIT SCH (08:27)
[2019-09-22] MEDS: PANTOPRAZOLE 40 MG TABLET PO SCH (08:27)
== END 2019-09-22 11:55 | disposition home or self-care (01) | DRG 232 ==
LOC: N.EDINP 03:43 → N.ED 03:43 → SUATTDRO 05:41 → N.ICU 09:38 → SUATTDRO 10:25 → N.ICU 13:35 → N.TELES 09-12 19:17 → N.CVR 09-17 11:44 → N.TELES 09-18 11:38
PROVIDERS: ADMIT Internal Medicine; ATTEND Internal Medicine